=== PATIENT | female | born 1990 | race Caucasian/White ===

== ENCOUNTER 2019-07-11 10:55 | Outpatient (CLI) | payer OTHER | END 2019-07-11 10:56 | disposition home or self-care (01) | LOC: DTY/OP 10:55 | PROVIDERS: ATTEND Specialist | DX: Z01.818 Encounter for other preprocedural examination (principal); E66.01 Morbid (severe) obesity due to excess calories | CPT/HCPCS: 97802 ==

== ENCOUNTER 2019-09-15 11:00 | Inpatient (IN) | payer OTHER ==
[2019-09-26] MEDS ORDERED: Heparin 5,000 UNITS/ML VIAL ONE (06:21)
[2019-09-26] MEDS ORDERED: ceFOXitin 2 GM/50 ML Duplex BAG ONE (06:22)
[2019-09-26] MEDS ORDERED: Scopolamine 1.5 mg/72 hour Patch ONE ×2 (06:22→06:37)
[2019-09-26] MEDS ORDERED: Midazolam HCl 2 mg/2 ml Vial ONE (06:36)
[2019-09-26] MEDS ORDERED: Fentanyl 100 MCG/2 ML VIAL ONE ×2 (06:36→09:58)
[2019-09-26] MEDS ORDERED: Famotidine/PF 20 mg/2ml Vial ONE (06:37)
[2019-09-26] MEDS ORDERED: Bupivacaine 0.25% HCL 30 ML VIAL ONE (07:44)
[2019-09-26] MEDS ORDERED: Lidocaine 1% w/Epinephrine 1:100K 20 ML VIAL ONE (07:44)
[2019-09-26] MEDS ORDERED: Promethazine HCl 25 MG/ML VIAL ONE (09:51)
[2019-09-26] MEDS ORDERED: PROPOFOL 200 MG/20 ML VIAL ONE (11:01)
[2019-09-26] MEDS ORDERED: Ondansetron PF 4 MG/2 ML Vial ONE (11:01)
[2019-09-26] MEDS ORDERED: Rocuronium Bromide 10 MG/ML (10ML VIAL) ONE (11:01)
[2019-09-26] MEDS ORDERED: Lidocaine 1% PF 5 ML VIAL ONE (11:01)
[2019-09-26] MEDS ORDERED: Labetalol HCl 100 MG/20 ML VIAL ONE (11:01)
[2019-09-26] MEDS ORDERED: Ketorolac Tromethamine 30 MG/ML VIAL ONE (11:01)
[2019-09-26] MEDS ORDERED: Succinylcholine Chloride 20 MG/ML 10 ml SYRINGE FS ONE (11:01)
[2019-09-26] MEDS ORDERED: Dextrose 5% in Water 1,000 ML IV PRN (11:36)
[2019-09-26] MEDS ORDERED: Insulin Regular 300 UNITS/3 ML VIAL SC PRN (11:36)
[2019-09-26] MEDS ORDERED: Dextrose 50% Abboject 50 ML SYRINGE SLOW IVP PRN (11:36)
[2019-09-26] MEDS ORDERED: Ondansetron PF 4 MG/2 ML Vial IVP PRN (11:36)
[2019-09-26] MEDS ORDERED: Promethazine HCl 25 MG/ML VIAL IM PRN (11:36)
[2019-09-26] MEDS ORDERED: hydrALAZINE 20 MG/ML VIAL SLOW IVP PRN (11:36)
[2019-09-26] MEDS ORDERED: Morphine 2 MG/ML SYRINGE SLOW IVP PRN (11:36)
[2019-09-26] MEDS ORDERED: diphenhydrAMINE 50 MG/ML VIAL IVP PRN (11:36)
[2019-09-26] MEDS ORDERED: Morphine 4 MG/ML VIAL SLOW IVP PRN (11:36)
[2019-09-26] MEDS ORDERED: Pantoprazole 40 MG VIAL IVP SCH (12:30)
[2019-09-26] MEDS: 1/2 NS w/KCL 20 mEq 1,000 ML IV SCH ×2 (12:51→20:25)
[2019-09-26] MEDS: Ketorolac Tromethamine 30 MG/ML VIAL IVP SCH ×3 (12:57→23:47)
[2019-09-26 14:03] VITALS: BMI 46.6
--- NOTE | 2019-09-26 17:57 | OP ---
DATE OF PROCEDURE: 09/26/2019 PREOPERATIVE DIAGNOSIS: Morbid obesity. POSTOPERATIVE DIAGNOSIS: Morbid obesity. PROCEDURE PERFORMED: Laparoscopic vertical sleeve gastrectomy using the ViSiGi device. ANESTHESIA: General endotracheal. INDICATIONS: The patient is a 29-year-old morbidly obese white female. She has undergone preoperative evaluation and education, presents this time for sleeve gastrectomy. DESCRIPTION OF OPERATION: Informed consent was obtained. The patient was taken to the operating room where general endotracheal anesthesia was obtained with the patient in supine position. Abdomen was prepped with ChloraPrep and draped in sterile fashion. Local anesthetic was infiltrated and 5 mm supraumbilical incision was created through which Veress needle was passed to the peritoneal cavity and pneumoperitoneum established using carbon dioxide up to a pressure of 15 mmHg. A 5 mm trocar port was passed through this same incision. Laparoscopic camera was passed through this port. Under direct vision, 4 additional ports were placed including bilateral 5 mm subcostal ports, a 12 mm right paramedian port and a 15 mm left paramedian port. A 5 mm epigastric incision was created through which Nathansen retractor was passed into the abdominal cavity and used to retract the left lobe of the liver. The patient was placed into reverse Trendelenburg position. The ViSiGi device was advanced within the stomach and used to decompress this. The pylorus was identified and beginning 4 cm proximal to the pylorus, the omentum and vascular tissue along the greater curvature was divided using the LigaSure in an ascending fashion up to the angle of His. All posterior adhesions were mobilized. The short gastric vessels were carefully divided and then hemostasis was maintained using the LigaSure. Once this was completely mobilized, the ViSiGi was carefully positioned at the level of the pylorus and placed to suction, which was clearly defining the lesser curvature of the stomach. The gastrectomy was then performed using a series of fires of the [place] stapler using a green load followed by a gold load and a series of blue loads until completion of the gastrectomy. The ViSiGi along the lesser curvature was used as a size 36 bougie to guide in the gastric division. Care was taken to avoid narrowing the incisura or the gastroesophageal junction. The integrity of the staple line was then assessed by insufflating gas through the ViSiGi while irrigating along the staple line. There was no evidence of an air leak. There was no evidence of bleeding along the staple line. The resected stomach was then removed through the 15 mm port and the fascia was closed with 0 Vicryl suture using a GraNee needle. I then closed the 12 mm port also using the GraNee needle and 0 Vicryl suture. The Nathansen retractor was removed. All ports and instruments were removed under direct vision. All irrigant was aspirated. Pneumoperitoneum was carefully evacuated. 0.25% Marcaine with epinephrine was infiltrated into each port site. Skin edges approximated with 4-0 Monocryl subcuticular suture. Dermabond was placed externally. There were no complications. The patient tolerated the procedure well and was taken to recovery room in stable condition. FINDINGS: The patient had typical anatomy. There were no internal adhesions. The liver showed only mild fatty liver changes. Operation was performed without complications or blood loss. She tolerated the procedure well and was taken to recovery room in stable condition. Job ID: [id number]
[2019-09-26] MEDS: Acetaminophen 1,000 MG in Premix Bag 1 BAG IVPB SCH ×2 (18:53→23:47)
[2019-09-26] MEDS ORDERED: Enoxaparin Sodium 40 MG/0.4 ML SYRINGE SC SCH (21:00)
[2019-09-27] MEDS: 1/2 NS w/KCL 20 mEq 1,000 ML IV SCH ×2 (04:28→11:37)
[2019-09-27 05:04] LABS: #Basophils 0.1 thou/uL (0.0-0.2); #Eosinphils 0.8 thou/uL (0.0-0.7); #Lymphocytes 4.7 thou/uL (1.20-3.40); #Monocytes 0.4 thou/uL (0.11-0.59); %Basophils 0.7 % (0.0-1.0); %Eosinophils 5.9 % (0.0-10.0); %Lymphocytes 36.3 % (21.0-51.0); %Monocytes 3.3 % (0.0-10.0); %Neutrophils 53.7 % (42.0-75.0); Hemoglobin 13.4 g/dL (12.0-16.0); Mean Corpuscular Hemoglobin 27.5 pg (27.0-31.0); Mean Corpuscular Volume 83.2 fL (78.0-98.0); Mean Platelet Volume 7.8 fL (7.4-10.4); Platelet Count 407 thou/uL (130-400); RBC Distribution Width 12.2 % (11.5-14.5); Red Blood Cell (RBC) Count 4.87 mill/uL (4.20-5.40)
[2019-09-27 05:27] LABS: Anion Gap 11 mmol/L (10-20); BUN (Urea Nitrogen) 4 mg/dL (7.0-18.7); Calc. Creatinine Clearance 240 mL/min (70-130); Calcium 8.9 mg/dL (7.8-10.44); Carbon Dioxide 26 mmol/L (22-29); Chloride 108 mmol/L (98-107); Estimated GFR-MDRD Greater than 90; Glucose 94 mg/dL (70-105); Potassium 3.8 mmol/L (3.5-5.1); Sodium 141 mmol/L (136-145)
[2019-09-27] MEDS: Acetaminophen 1,000 MG in Premix Bag 1 BAG IVPB SCH ×2 (05:35→11:37)
[2019-09-27] MEDS: Ketorolac Tromethamine 30 MG/ML VIAL IVP SCH ×2 (05:35→11:37)
[2019-09-27] MEDS ORDERED: Pantoprazole 40 MG VIAL IVP SCH (09:00)
[2019-09-27 11:49] VITALS: BP 119/63; TEMP 97.9
[2019-09-27] MEDS ORDERED: Hydrocodone-Acetamin 15 ML UDCUP PO PRN ×2 (13:09→16:00)
[2019-09-27] MEDS ORDERED: FLU VACC QS2019-20(6MOS UP)/PF 60 MCG/0.5 ML SYRINGE IM ONE (14:15)
[2019-09-27] MEDS ORDERED: Prevnar 13-Val Conj/PF 0.5 ML SYRINGE IM ONE (14:15)
== END 2019-09-27 13:50 | disposition home or self-care (01) | DRG 621 ==
LOC: SURG A 09-26 05:20 → SURG B 09-26 09:54
PROVIDERS: ADMIT Specialist; ATTEND Specialist
PROC: 0DB64Z3 Excision of Stomach, Percutaneous Endoscopic Approach, Vertical (ICD-10-PCS; principal; 2019-09-26)
DX: E66.01 Morbid (severe) obesity due to excess calories (principal); Z68.42 Body mass index [BMI] 45.0-49.9, adult; E11.9 Type 2 diabetes mellitus without complications; F41.9 Anxiety disorder, unspecified; F32.9 Major depressive disorder, single episode, unspecified; F17.200 Nicotine dependence, unspecified, uncomplicated; Z91.048 Other nonmedicinal substance allergy status
CPT/HCPCS: 36415; 36416; 80048; 85025; 88307; 88312; 90471; 90670; 90686; 94760; C9113; G0008; G0009; J0131; J0694; J1644; J1650; J1885; J2001; J2250; J2270; J2405; J2550; J2704; J3010; J3480; S0020; S0028